=== PATIENT | male | born 1955 ===

== ENCOUNTER 2018-05-07 09:53 | Emergency (ER) | payer BC ==
[2018-05-07 10:04] VITALS: BP 144/99
--- NOTE | 2018-05-07 10:28 | ED ---
Lower Extremity - HPI Summary HPI Summary: 62F presents with right leg rash for the past three days. He states he was mowing the lawn three days ago and might have gotten bite by something or hit. He states that it is a burning pain. He states that the redness has been spreading. is not diabetic. edema noted to area. no history of DVT. also has smaller rash on calf. no fevers. does not remember a tick being present but could have been. has been taking tyenlol for pain. - History of Current Complaint Pain Intensity: 2 <Jeannie Vargas - Last Filed: 05/07/18 10:45> <Kody Hudson - Last Filed: 05/07/18 12:19> - History of Current Complaint Chief Complaint: [employer] Stated Complaint: BUMP ON INNER THIGH Time Seen by Provider: 05/07/18 10:20 - Allergies/Home Medications Allergies/Adverse Reactions: Allergies Allergy/AdvReac Type Severity Reaction Status Date / Time No Known Allergies Allergy Verified 05/07/18 09:57 PMH/Surg Hx/FS Hx/Imm Hx Endocrine/Hematology History: Denies: Hx Anticoagulant Therapy Cardiovascular History: Denies: Hx Cardiac Arrest - Surgical History Surgery Procedure, Year, and Place: CHOLECYSTECTOMY, TONSILLECTOMY Infectious Disease History: No Infectious Disease History: Denies: Traveled Outside the [place] in Last 30 Days - Family History Known Family History: Positive: Hypertension - Social History Alcohol Use: Occasionally Substance Use Type: Reports: None Smoking Status (MU): Never Smoked Tobacco <Jeannie Vargas - Last Filed: 05/07/18 10:45> Review of Systems Negative: Fever Negative: Chest Pain Negative: Shortness Of Breath Positive: Rash All Other Systems Reviewed And Are Negative: Yes <Jeannie Vargas - Last Filed: 05/07/18 10:45> Physical Exam Triage Information Reviewed: Yes Vital Signs On Initial Exam: Initial Vitals Temp Pulse Resp BP Pulse Ox 99.7 F 86 18 144/99 97 05/07/18 09:58 05/07/18 09:58 05/07/18 09:58 05/07/18 09:58 05/07/18 09:58 Vital Signs Reviewed: Yes Appearance: Positive: Well-Appearing Skin: Positive: Other - 5cm by 6cm area of erythema and edema on right thigh, with some streaking surrounding, area of less erythema in ring around large lesion in center, another 3cm by 4cm area of erthyema on right calf Head/Face: Positive: Normal Head/Face Inspection Eyes: Positive: Normal, Conjunctiva Clear ENT: Positive: Pharynx normal Respiratory/Lung Sounds: Positive: Clear to Auscultation, Breath Sounds Present Cardiovascular: Positive: Normal, RRR Musculoskeletal: Positive: Normal Neurological: Positive: Normal Psychiatric: Positive: Normal <Jeannie Vargas - Last Filed: 05/07/18 10:45> Vital Signs On Initial Exam: Initial Vitals Temp Pulse Resp BP Pulse Ox 99.7 F 86 18 144/99 97 05/07/18 09:58 05/07/18 09:58 05/07/18 09:58 05/07/18 09:58 05/07/18 09:58 <Kody Hudson - Last Filed: 05/07/18 12:19> Diagnostics - Vital Signs Vital Signs Temp Pulse Resp BP Pulse Ox 05/07/18 09:58 99.7 F 86 18 144/99 97 <Jeannie Vargas - Last Filed: 05/07/18 10:45> - Vital Signs Vital Signs Temp Pulse Resp BP Pulse Ox 05/07/18 09:58 99.7 F 86 18 144/99 97 <Kody Hudson - Last Filed: 05/07/18 12:19> Lower Extremity Course/Dx - Course Course Of Treatment: 62F presents with right leg rash for the past three days. He states he was mowing the lawn three days ago and might have gotten bite by something or hit. He states that it is a burning pain. He states that the redness has been spreading. is not diabetic. edema noted to area. no history of DVT. also has smaller rash on calf. no fevers. does not remember a tick being present but could have been. has been taking tyenlol for pain. on exam has 6cm by 5cm right thigh with international first officer in area in middle and streaking surrounding. look like develop cellulitis around and is potentially forming into bull eye rash so will treat with doxcy to cover for both. other rash on calf looks just like a bug bite. will have est care with pcp to follow up about blood pressure as is elevated at this time. patient understand and agrees with plan. - Diagnoses Differential Diagnosis/HQI/PQRI: Positive: Cellulitis, DVT, Other - abscess, lyme <SamJeannie - Last Filed: 05/07/18 10:45> <Kody Hudson - Last Filed: 05/07/18 12:19> - Diagnoses Provider Diagnoses: Cellulitis of right leg, Elevated blood pressure reading Discharge - Sign-Out/Discharge Documenting (check all that apply): Discharge/Admit/Transfer - Billing Disposition and Condition Condition: GOOD Disposition: Home <SamJeannie - Last Filed: 05/07/18 10:45> - Billing Disposition and Condition Condition: GOOD Disposition: Home <Kody Hudson - Last Filed: 05/07/18 12:19> - Discharge Plan Condition: Good Disposition: HOME Prescriptions: DOXYcycline CAP(*) [DOXYcycline 100MG CAP(*)] 100 mg PO BID #28 cap Patient Education Materials: Cellulitis (ED) Referrals: [facility] [Outside] Additional Instructions: will treat for potential lyme Take antibiotic twice a day for 14 days Take with food, use sunscreen when go outside Establish care with primary care physician to follow up Return to ED if develop any new or worsening symptoms Per institutional requirements, I have reviewed the chart, however, I was not consulted specifically or made aware of this patient by the above midlevel provider. I did not personally evaluate, interact with , or disposition this patient.
== END 2018-05-07 10:53 | disposition home or self-care (01) ==
LOC: UCEAST 09:53
DX: L03.115 Cellulitis of right lower limb (principal); R03.0 Elevated blood-pressure reading, without diagnosis of hypertension
CPT/HCPCS: 99202; G0463